=== PATIENT | female | born 1955 | race Caucasian/White ===

== ENCOUNTER → 2024-07-26 10:38 | Outpatient (REF) | payer OTHER, SELFPAY ==
[2024-07-26 11:40] LABS: % Basophils 0.4 % (0-2); % Eosinophils 0.9 % (0-6); % Immature Granulocytes 0.3 % (0-0.5); % Lymphocytes 32.1 % (20.5-51.1); % Monocytes 8.1 % (1.7-9.3); % Neutrophils 58.2 % (42.2-75.2); Absolute Eosinophils 0.1 10^3/uL (0-0.7); Absolute Lymphocytes 2.9 10^3/uL (1.2-3.4); Absolute Monocytes 0.7 10^3/uL (0.1-0.6); Absolute Neutrophils 5.2 10^3/uL (1.4-6.5); Hematocrit 34.8 % (37.0-47.0); Hemoglobin 11.5 g/dL (12.0-16.0); Mean Corpuscular Hgb 31.3 pg (27.0-31.0); Mean Corpuscular Volume 94.6 fL (81.0-99.0); Mean Platelet Volume 10.1 fL (7.4-10.4); Nucleated Red Blood Cells % 0 %; Platelet Count 271 10^3/uL (130-400); Red Blood Cell Count 3.68 10^6/uL (4.20-5.40); Red Cell Dist. Width 12.8 % (11.5-14.5)
[2024-07-26 11:50] LABS: ALT (SGPT) 19 U/L (0-35); AST (SGOT) 16 U/L (14-36); Albumin 4.1 g/dl (3.5-5.0); Alkaline Phosphatase 60 U/L (38-126); Blood Urea Nitrogen 25 mg/dl (7-17); Calcium 10.2 mg/dl (8.4-10.2); Carbon Dioxide 27 mmol/L (22-30); Chloride 109 mmol/L (98-107); HDL Cholesterol 48 mg/dl; LDL Cholesterol, Calculated 71 mg/dl; Potassium 3.9 mmol/L (3.5-5.1); Sodium 144 mmol/L (135-145); Total Cholesterol 142 mg/dl (50-199); Total Protein 6.3 g/dl (6.3-8.2); Triglyceride 115 mg/dl (10-149); Very Low Density Lipoprotein 23 mg/dl (0-30); eGFR > 60.00
[2024-07-26 12:00] LABS: Glucose 87 mg/dl (70-99); Total Bilirubin 0.4 mg/dl (0.2-1.3)
== END ==
LOC: OLABN 10:38
PROVIDERS: ATTENDING PHYSICIAN Student in an Organized Health Care Education/Training Program
DX: I10 Essential (primary) hypertension (principal); E78.5 Hyperlipidemia, unspecified
CPT/HCPCS: 36415; 80053; 80061; 85025

== ENCOUNTER → 2024-08-16 10:18 | Outpatient (REF) | payer OTHER, MEDICARE, SELFPAY ==
[2024-08-16 11:06] LABS: Hematocrit 35.4 % (37.0-47.0); Hemoglobin 12.1 g/dL (12.0-16.0); Mean Corp Hgb Conc. 34.2 g/dL (33.0-37.0); Mean Corpuscular Volume 91.2 fL (81.0-99.0); Nucleated Red Blood Cells % 0 %; Platelet Count 277 10^3/uL (130-400); Red Cell Dist. Width 12.0 % (11.5-14.5)
[2024-08-16 11:23] LABS: Blood Urea Nitrogen 20 mg/dl (7-17); Calcium 9.5 mg/dl (8.4-10.2); Carbon Dioxide 24 mmol/L (22-30); Chloride 110 mmol/L (98-107); Glucose 82 mg/dl (70-99); Potassium 4.2 mmol/L (3.5-5.1); Sodium 140 mmol/L (135-145); eGFR > 60.00
== END ==
LOC: OLABN 10:18
PROVIDERS: ATTENDING PHYSICIAN Student in an Organized Health Care Education/Training Program
DX: I69.352 Hemiplegia and hemiparesis following cerebral infarction affecting left dominant side (principal)
CPT/HCPCS: 36415; 80048; 85025

== ENCOUNTER → 2024-11-21 09:01 | Outpatient (REF) | payer MEDICARE, SELFPAY | LOC: SDSPAT 09:01 | PROVIDERS: ATTENDING PHYSICIAN Internal Medicine Cardiovascular Disease; FAMILY PHYSICIAN Student in an Organized Health Care Education/Training Program; OTHER PHYSICIAN Internal Medicine Cardiovascular Disease | DX: I67.9 Cerebrovascular disease, unspecified (principal) | CPT/HCPCS: 93005 ==

== ENCOUNTER 2024-11-27 11:40 | Day surgery (SDC) | payer MEDICARE, SELFPAY ==
--- NOTE | 2024-11-27 12:18 | ITS.CL.IMPLP ---
[employer] - Implant Loop
Implant Loop
Procedure Report:
ILR
Date of Procedure: November 27, 2024
Patient : 1955
Procedure: Insertable loop recorder
Indication: AF monitoring
Implant: Linq2: [employer]; Model# [id number]; Serial# [id number]
Technique: The patient was prepped and draped in the usual fashion.��Local anesthetic was applied to the left��prepectoral subcutaneous tissue. A subcutaneous pocket was created with blunt dissection. Hemostasis was excellent. The device was
placed in the pocket. The skin was closed with Prolene suture. The estimated blood��loss was minimal. There were no complications.
Final Programming: FVT 231 30/40 beats
����������������������������������VT 176 16 beats
����������������������������������Asystole 3 sec
����������������������������������Rip 30 bpm for 4 beats
����������������������������������AF On AF only.
Conclusion: Uncomplicated insertable loop implant.
Recommendation: Routine Reveal care.
cc: Dr. Praveen Gardner
== END 2024-11-27 12:51 | disposition home or self-care (01) ==
LOC: CATH 11:40
PROVIDERS: ATTENDING PHYSICIAN Internal Medicine Cardiovascular Disease; FAMILY PHYSICIAN Student in an Organized Health Care Education/Training Program; OTHER PHYSICIAN Internal Medicine Cardiovascular Disease
DX: Z09 Encounter for follow-up examination after completed treatment for conditions other than malignant neoplasm (principal); I10 Essential (primary) hypertension; Z91.199 Patient's noncompliance with other medical treatment and regimen due to unspecified reason; Z86.73 Personal history of transient ischemic attack (TIA), and cerebral infarction without residual deficits; R00.1 Bradycardia, unspecified; E78.5 Hyperlipidemia, unspecified; E46 Unspecified protein-calorie malnutrition; F41.9 Anxiety disorder, unspecified; F32.A Depression, unspecified; J44.0 Chronic obstructive pulmonary disease with (acute) lower respiratory infection; Z87.891 Personal history of nicotine dependence; Z79.82 Long term (current) use of aspirin; Z79.899 Other long term (current) drug therapy; Z88.1 Allergy status to other antibiotic agents; Z88.2 Allergy status to sulfonamides
CPT/HCPCS: 33285; C1764

== ENCOUNTER 2024-12-31 12:51 | Emergency (ER) | payer MEDICARE, SELFPAY ==
[2024-12-31] VITALS (7 sets, daily range): BP systolic 130–162; BP diastolic 78–102
--- NOTE | 2024-12-31 14:17 | ED.GENMED ---
History of Present Illness
General
Chief Complaint: Heart Rate Problem
Source: patient and family (Sister)
Time Seen by Provider: 12/31/24 14:16
History of Present Illness
History of Present Illness:
Patient is currently in [facility] after having a significant left hemiplegic CVA. She was sitting getting upset over what she has lost recently including her boyfriend for's cat along with her own medical issues. She became very upset and
felt too large to problems in her chest. Each lasting seconds. There was very brief chest pain with each thump. However no ongoing pain pleuritic pain shortness of breath syncope near syncope diaphoresis or any other complaints. She currently
feels at baseline. She has had an ongoing cough for 3 weeks. She has had multiple negative COVID test. She has had 2 negative chest x-rays. They did go to put her on a course of azithromycin with some mild improvement.
Past History
Past History
ED Past Medical History: CVA, Hypercholesterolemia and Other (PTSD)
ED Past Surgical History: Other (Cranial surgery)
Social History
Living: assisted living
Employment: Disabled
Phy Exam
Physical Exam
Physical Exam:
GENERAL: Alert and oriented in no apparent distress
EYE: Orbits normal.
NECK: Supple
CARDIAC: Regular rate and rhythm without any obvious murmurs.
LUNGS: Clear breath sounds,normal. No respiratory distress
ABDOMEN: Soft, without focal tenderness or distention
NEUROLOGICAL: Alert and oriented. Relatively gross left hemiplegia
SKIN: Warm and dry, no rash or lesion, no discoloration, skin intact.
MUSCULOSKELETAL: No edema,no deformity.Good color
PSYCH: Normal and appropriate interaction.
Course
Orders/Labs/Results
Orders:
Orders
12/31/24 13:04
EKG [Electrocardiogram (*1)] Urgent
Reason for Study: Palpitations
EKG- Treatment ONCE
12/31/24 14:27
CXR2 [CR Chest - 2 Views ] Urgent
Comment:
Reason For Exam: Ongoing cough
12/31/24 14:28
Cardiac Monitoring- Treatment ONCE
12/31/24 15:38
Amoxicillin 875 mg/Clav 125 mg [Augmentin 875 mg/125 mg] 1 tablet PO NOW STA
Vital Signs
Initial and Last Documented VS:
Initial Vital Signs
Temp Pulse Resp BP Pulse Ox
98.0 F 66 20 147/102 97
12/31/24 13:00 12/31/24 13:00 12/31/24 13:00 12/31/24 13:00 12/31/24 13:00
Last Documented Vital Signs
Temp Pulse Resp BP Pulse Ox
98.0 F 58 17 150/80 97
12/31/24 13:00 12/31/24 17:30 12/31/24 17:30 12/31/24 17:00 12/31/24 15:30
MDM/Problems Addressed
Differential Diagnosis Includes:
Low suspicion for any significant arrhythmia issues. No prolonged chest pain or shortness of breath with this. No syncope or near syncope. At baseline now. Normal EKG. We will place her on a monitor and attempt to interrogate the loop recorder.
She will get a chest x-ray with her ongoing cough although she is in no respiratory distress. This may be an aspiration issue. No indication for laboratory testing
*Radiology
Radiology exam reviewed: radiology read reviewed (Questionable small infiltrate)
*Pulse Oximetry
SaO2: 97
Oxygen Mode of Delivery: Room air
Patient hypoxic: no
*EKG
Interpreted by ED Provider?: Yes
Interpretation: abnormal
Comparison EKG: no changes
Heart Rate: 67
Rate: normal
Rhythm: sinus
[place]: normal axis
Interval: normal interval
QRS Pattern: normal QRS
Ischemia: non-specific ST changes
*Critical Care Note
Total Time (30-74mins, 75-104mins- exclusive of procedures): Not Applicable
Data Reviewed
Review of Other/Old Records Reveals: Labs and Testing
Update Note
Update Note:
Patient is absolutely in no distress. Mg recorder shows no arrhythmias. EKG is stable. Chest x-ray has a slightly tortuous aorta but she has no symptoms consistent with this issue. She will outpatient follow-up is reasonable. With small ongoing
infiltrate we will cover with antibiotics.
ED Attending Note
-
Portions of this chart may have been created with voice recognition software.� Occasional wrong word or��sound alike� substitutions may have occurred due to the inherent limitations of voice recognition software.
Discharge Plan
Departure
Patient Disposition: Home (Routine Discharge)
Date of Disposition: 12/31/24
Time of Disposition: 15:36
Patient with high blood pressure during this ER visit?: Yes
Discharge Problem:
Palpitations, Ongoing pneumonia, Tortuous aorta
Instructions: Pneumonia in adults (DC), BLOOD PRESSURE
Prescriptions:
New
amoxicillin-pot clavulanate 875-125 mg tablet
1 tab PO BID Qty: 14 0RF
No Action
atorvastatin 40 mg Tablet
40 mg PO QPM
acetaminophen 325 mg Tablet
650 mg PO Q4H MDD 3000 mg PRN (Reason: Mild pain, Temp> 100.4)
albuterol sulfate 2.5 mg /3 mL (0.083 %) Solution For Nebulization
2.5 mg INHALATION Q6H PRN (Reason: cough)
albuterol sulfate 2.5 mg /3 mL (0.083 %) Solution For Nebulization
2.5 mg INHALATION TID
cetirizine 10 mg Tablet
10 mg PO DAILY
naloxone 0.4 mg/mL Solution
0.4 mg SC ONCE PRN (Reason: Opiod overdose)
ondansetron HCl 4 mg Tablet
4 mg PO Q8H PRN (Reason: nausea/vomiting)
amlodipine 2.5 mg Tablet
2.5 mg PO DAILY
dextromethorphan-guaifenesin 10-100 mg/5 mL Syrup
10 ml PO Q4H PRN (Reason: cough)
tramadol 50 mg Tablet
25 mg PO Q6H PRN (Reason: Mod pain)
famotidine [Pepcid] 20 mg Tablet
20 mg PO BID
magnesium hydroxide [Milk of Magnesia] 400 mg/5 mL Suspension
30 ml PO HS PRN (Reason: Constipaton)
baclofen 10 mg Tablet
10 mg PO HS
bisacodyl 10 mg Suppository
10 mg RI Q3D PRN (Reason: MOM/Lactulose ineff, no BM x3 days)
aspirin 81 mg Tablet
81 mg PO DAILY
gabapentin 100 mg Capsule
200 mg PO HS
losartan 100 mg Tablet
100 mg PO DAILY
fluticasone propionate [Flonase Allergy Relief] 50 mcg/actuation [place],Suspension
1 spray INTRANASAL DAILY
duloxetine 60 mg Capsule,Delayed Release(Dr/Ec)
60 mg PO HS
gabapentin 100 mg Tablet
100 mg PO BID@0830,1430
latanoprost (PF) 0.005 % [place]
1 drp BOTH EYES HS
sennosides-docusate sodium [Senna with Docusate Sodium] 8.6-50 mg Tablet
1 tab-cap PO QPM
Referrals:
Karyn Vasquez [Family Provider] - Follow up in 2-3 days
Activity Restrictions/Additional Instructions:
I gave you a copy of your x-ray report.
The prescriptions were sent to your pharmacy
For completeness, you should get a CAT scan with dye of your chest at some point in the near future. Your primary physician can arrange this
Interventions
Interventions:
*Risk Screen - Suicide Last Done: 12/31/24 13:00
*General Assessment Last Done: 12/31/24 13:00
*Neglect/Abuse Screening Last Done: 12/31/24 13:00
*ED COVID-19 Vaccine History Last Done: 12/31/24 14:37
*ED Influenza Vaccine History Last Done: 12/31/24 14:37
ED- Cardiac Assessment Last Done: 12/31/24 14:37
ED- Pulmonary Assessment Last Done: 12/31/24 14:37
Discharge Date and Time
Print Language: DUTCH
[2024-12-31] MEDS: AUGMENTIN 875 MG/125 MG 1 TABLET PO (16:02)
== END 2024-12-31 19:41 ==
LOC: EMR 12:51
PROVIDERS: EMERGENCY PHYSICIAN Emergency Medicine
DX: J18.9 Pneumonia, unspecified organism (principal); R00.2 Palpitations; Q25.46 Tortuous aortic arch; E78.00 Pure hypercholesterolemia, unspecified; I69.354 Hemiplegia and hemiparesis following cerebral infarction affecting left non-dominant side
CPT/HCPCS: 99284; 71046; 93005